=== PATIENT | male | born 1995 | race Caucasian/White ===

== ENCOUNTER 2017-01-13 17:42 | Emergency (ER) | payer OTHER ==
[2017-01-13] MEDS ORDERED: XYLOCAINE 2% HCL 20 ML MDV ONE (17:59)
[2017-01-13] MEDS ORDERED: Adacel Vial IM ONE (18:03)
[2017-01-13] MEDS ORDERED: XYLOCAINE 2% HCL 20 ML MDV IJ ONE (18:05)
--- NOTE | 2017-01-13 18:13 | ERPHSYRPT ---
- History of Present Illness Time Seen by Provider: 01/13/17 18:00 Source: patient Patient Subjective Stated Complaint: laceration to 2nd digit right hand today while gutting a [place]ussen. Triage Nursing Assessment: large laceration to base of 2nd digit right hand with moderate bleeding. has full rom to finger. area cleaned with hibiclens and saline. pressure dsg applied. Physician History: PATIENT SUSTAINED LACERATION TO HIS RIGHT INDEX FINGER WHILE CUTTING A DEER USING A KNIFE. DENIES NUMBNESS OR TINGLING IN FINGER. Occurred: just prior to arrival Method of Injury: incised Quality: constant Severity of Pain-Max: mild Severity of Pain-Current: mild Extremities Pain Location: 2nd finger: right Modifying Factors: Improves With: nothing Associated Symptoms: none Allergies/Adverse Reactions: No Known Drug Allergies Allergy (Unverified 01/13/17 17:52) Hx Tetanus, Diphtheria Vaccination/Date Given: No Hx Influenza Vaccination/Date Given: No Hx Pneumococcal Vaccination/Date Given: No - Review of Systems Musculoskeletal: Injury Neurological: No Symptoms - Past Medical History Pertinent Past Medical History: No - Past Surgical History Past Surgical History: Yes Musculoskeletal: Orthopedic Surgery Other Surgical History: right knee surgery - Social History Smoking Status: Never smoker Exposure to second hand smoke: No Drug Use: none Patient Lives Alone: No - Nursing Vital Signs Nursing Vital Signs: Initial Vital Signs Temperature 97.5 F 01/13/17 17:46 Pulse Rate 95 H 01/13/17 17:46 Respiratory Rate 16 01/13/17 17:46 Blood Pressure 164/84 01/13/17 17:46 Pain Scale Pain Intensity 0 - Physical Exam General Appearance: no apparent distress Hand Exam: soft tissue tenderness (THERE IS A 2CM LACERATION LEFT INDEX FINGER MID PROXIMAL PHALANGX RADIAL ASPECT, FROM MCP, PIP AND DIP JOINTS, NO EVIDENCE OF FOREIGN BODIES OR TENDON INVOLVEMENT) Neuro/Tendon Exam: normal sensation, normal motor functions SpO2 Interpretation: normal SpO2: 98 Oxygen Delivery: Room Air Procedures - Laceration/Wound Repair Right Finger Wound Location: Right (INDEX FINGER) Wound Length (cm): 2 Wound's Depth, Shape: into muscle, linear Wound Explored: clean Irrigated: Yes Hibiclens Prep: Yes Anesthesia: local, digital block, 2% Lidocaine Volume Anesthetic (ccs): 4 Suture Size/Type: 4-0 Number of Sutures: 6 Ordered Tests: Medication Summary Discontinued Medications Generic Name Dose Route Start Last Admin Trade Name Tariq PRN Reason Stop Dose Admin Diphtheria/Tetanus/Acell Pertussis Confirm 01/13/17 18:03 Adacel Vial Administered 01/13/17 18:04 Dose 0.5 ml IM .STK-MED ONE Lidocaine HCl Confirm 01/13/17 17:59 Xylocaine 2% Hcl 20 Ml Mdv Administered 01/13/17 18:00 Dose 1 ml .ROUTE .STK-MED ONE - Progress Counseled pt/family regarding: need for follow-up - Departure Time of Disposition: 18:30 Departure Disposition: Home Clinical Impression: LACERATION RIGHT INDEX FINGER Condition: Stable Critical Care Time: No Additional Instructions: WATCH FOR SIGNS OF INFECTION, REDNESS, SWELLING OR DRAINAGE. HAVE STITCHES REMOVED AT 10 DAYS. ANTIBIOTIC KEFLEX 500MG EVERY 8 HOURS FOR 7 DAYS. TYLENOL OR MOTRIN NEEDED FOR PAIN. Prescriptions: Cephalexin Mh 500 mg [Keflex 500 mg] 500 mg PO TID #21 capsule
[2017-01-13 18:56] VITALS: BP 124/72; PULSE 76; O2SAT 99
== END 2017-01-13 19:06 | disposition home or self-care (01) ==
LOC: ED 17:42
PROC: 0HQFXZZ Repair Right Hand Skin, External Approach (ICD-10-PCS; principal; 2017-01-13)
DX: S61.210A Laceration without foreign body of right index finger without damage to nail, initial encounter (principal); W26.0XXA Contact with knife, initial encounter
CPT/HCPCS: 12001; 90471; 90715; 99284